=== PATIENT | male | born 1955 | race Caucasian/White ===

== ENCOUNTER 2017-06-06 17:32 | Emergency (ER) | payer MEDICARE ==
[~2017-06-06] VITALS: Ht 188 cm; Wt 138.6 kg
[~2017-06-06 17:32] MED LIST: ACTOS 45MG45 MG/TAB PO; CAPOTEN50 MG PO; FERROUS SU325 MG/TAB PO; FOLIC ACID 40400 MCG PO; GLUCOPHAGE1000 MG PO; HCTZ 25MG TAB25 MG PO; HUMALOG100 U/ML SC; INSULIN HUMA100 U/ML IJ; LEVEMIR100 U/ML SC; Lantus; METFORMIN HCL1000 MG PO; NORVASC 10MG10 MG PO; NORVASC10 MG PO; NOVOLOG 100U100 U/M1 SQ; VICTOZA6 MG/ML SC; VITAMIN C500 MG PO; ZESTRIL40 MG PO; ZOCOR 20MG20 MG PO
[2017-06-06 17:52] VITALS: BP 157/91; TEMP 98
[2017-06-06 20:17] LABS: BASO # 0.1 (0.0-0.2); BASO % 0.5 % (0.0-2.0); EOS # 0.1 (0.0-0.7); EOS % 0.6 % (0-4.0); GRAN # 8.4 (1.4-6.5); GRAN % 70.9 % (42.2-75.2); HEMATOCRIT 50.3 % (42.0-52.0); HEMOGLOBIN 16.9 g/dl (13.5-18.0); LYMPH # 2.5 (1.2-3.4); LYMPH % 20.7 % (20.0-51.0); MEAN CELL VOLUME 89 fl (80.0-100.0); MEAN CORPUSCULAR HEMOGLOBIN 30 pg (27.0-31.0); MEAN CORPUSCULAR HGB CONC 34 g/dl (33.0-37.0); MEAN PLATELET VOLUME 9.7 fl (7.4-10.4); MONO # 0.8 (0.1-0.6); MONO % 6.8 % (1.7-9.3); PLATELET COUNT 259 K/mm3 (130-400); RED BLOOD COUNT 5.67 M/mm3 (4.20-5.60); REDCELL DISTRIBUTION WIDTH-CV 12.9 % (11.5-14.5)
[2017-06-06 20:40] LABS: C-REACTIVE PROTEIN 0.6 mg/dL (0.0-0.9); CALCIUM 9.5 mg/dL (8.4-10.2); CREATININE, serum 0.72 mg/dL (0.66-1.25); POTASSIUM 3.8 mmol/L (3.4-5.0)
[2017-06-06 20:52] LABS: ERYTHROCYTE SEDIMENTATION RATE 11 mm/hr (0-30)
[2017-06-06 21:01] VITALS: PULSE 89
== END 2017-06-06 21:00 | disposition home or self-care (01) ==
LOC: COL.ER 17:32
PROVIDERS: Emergency Medicine
DX: H54.7 Unspecified visual loss (principal); H35.30 Unspecified macular degeneration; E11.9 Type 2 diabetes mellitus without complications; I10 Essential (primary) hypertension; Z79.4 Long term (current) use of insulin

== ENCOUNTER 2019-09-04 19:12 | Emergency (ER) | payer MEDICARE ==
[~2019-09-04] VITALS: Ht 188 cm; Wt 145.5 kg
[2019-09-04 19:23] VITALS: BP 146/86; TEMP 98.3
[2019-09-04 21:11] LABS: COLLECTION METHOD CLEAN CATCH
[2019-09-04 21:18] LABS: MUCOUS Present /lpf; PH 5 (5-8); SQUAMOUS EPITHELIAL None Seen /hpf; URINE APPEARANCE Clear; URINE BACTERIA None Seen /hpf; URINE BILIRUBIN Negative (NEGATIVE); URINE BLOOD Negative (NEGATIVE); URINE COLOR Yellow; URINE GLUCOSE Negative (NEGATIVE); URINE KETONE Negative (NEGATIVE); URINE LEUKOCYTE ESTERASE Negative (NEGATIVE); URINE NITRATE Negative (NEGATIVE); URINE PROTEIN(semi-quant) Negative (NEGATIVE); URINE RBC None Seen /hpf
[2019-09-04] MEDS ORDERED: FLEXERIL 1010 MG/TAB PO (21:33)
[2019-09-04] MEDS ORDERED: PERCOCET 325 MG1 TA2 PO (21:33)
[2019-09-04 21:41] VITALS: PULSE 80
== END 2019-09-04 21:41 | disposition home or self-care (01) ==
LOC: COL.ER 19:12
PROVIDERS: Emergency Medicine
DX: S39.012A Strain of muscle, fascia and tendon of lower back, initial encounter (principal); E11.9 Type 2 diabetes mellitus without complications; I10 Essential (primary) hypertension; E78.5 Hyperlipidemia, unspecified; E66.9 Obesity, unspecified; F17.210 Nicotine dependence, cigarettes, uncomplicated; Z79.4 Long term (current) use of insulin; Z68.41 Body mass index [BMI] 40.0-44.9, adult; Z96.653 Presence of artificial knee joint, bilateral; W19.XXXA Unspecified fall, initial encounter; Y92.009 Unspecified place in unspecified non-institutional (private) residence as the place of occurrence of the external cause
CPT/HCPCS: J2270; J2360